=== PATIENT | male | born 1995 | race African-American/Black ===

== ENCOUNTER 2022-07-15 11:00 | Outpatient (CLI) | payer MEDICAID | END 2022-07-15 23:59 | disposition home or self-care (01) | LOC: MLB 11:00 → EDSTATUS 07-16 15:50 | PROVIDERS: ATTEND Internal Medicine Gastroenterology | DX: Z01.812 Encounter for preprocedural laboratory examination (principal); Z20.822 Contact with and (suspected) exposure to COVID-19 ==

== ENCOUNTER 2022-07-29 08:01 | Emergency (ER) | payer MEDICAID ==
[~2022-07-29] VITALS: Ht 188 cm; Wt 68.0 kg
[2022-07-29 08:04] VITALS: BP 140/80
[2022-07-29] MEDS ORDERED: ONDANSETRON 4 MG/2 ML VIAL IVP ONE (08:05)
[2022-07-29] MEDS ORDERED: NACL 0.9% 1,000 ML IV SCH (08:05)
--- NOTE | 2022-07-29 08:08 | NUR ---
BIBA TO BED 8
--- NOTE | 2022-07-29 08:15 | NUR ---
27YO MALE PT BIBA HOME C/O L ABDOMINAL PAIN XTODAY. REPORTS SUDDEN ONSET AT 2AM ALONG W/ N/V-BLOOD. ABOMEN FLAT AND TENDER. STATES TAKING IBUPROFEN W/O RELIEF. LBM xTODAY. PT W/ DX CHOLITIS AND STATES MISSING GI CONSULT LAST WEEK. DENIES CHEST PAIN, SOB , FEVER OR CHILLS. PT AAOX4, IN VISIBLE DISTRESS AND GURADING ABDOMEN. ON VELVET WEAVER. HX:CHOLITIS NKA
[2022-07-29] MEDS ORDERED: KETOROLAC 15 MG/ML VIAL IVP ONE (08:25)
[2022-07-29 08:47] LABS: BASOPHILS # (AUTO) 0.1 K/uL (0.00-0.22); BASOPHILS % (AUTO) 0.4 % (0.0-2.0); EOSINOPHILS # (AUTO) 0.1 K/uL (0-0.4); EOSINOPHILS % (AUTO) 0.4 % (0.0-4.0); HEMATOCRIT 47.7 % (36-52); HEMOGLOBIN 16.2 g/dL (12.0-18.0); LYMPHOCYTES # (AUTO) 1.9 K/uL (2.0-11.5); LYMPHOCYTES % (AUTO) 13.9 % (20.5-51.1); MEAN CORPUSCULAR HEMOGLOBIN 34 pg (27-31); MEAN CORPUSCULAR HGB CONC 34 g/dL (33-37); MEAN CORPUSCULAR VOLUME 100.9 fL (80-94); MONOCYTES # (AUTO) 0.8 K/uL (0.8-1.0); MONOCYTES % (AUTO) 5.6 % (1.7-9.3); NEUTROPHILS # (AUTO) 11.2 K/uL (1.8-7.7); NEUTROPHILS % (AUTO) 79.7 % (42.2-75.2); PLATELET COUNT (AUTO) 256 K/uL (140-450); RED BLOOD CELL COUNT(AUTO) 4.72 MIL/uL (4.20-6.10); RED CELL DISTRIBUTION WIDTH 12.7 % (11.6-13.7)
[2022-07-29 08:58] LABS: ALBUMIN 4.7 g/dL (3.4-5.0); ANION GAP 20.7 (8-16); CREATININE 1.1 mg/dL (0.6-1.3); POTASSIUM 3.7 mmol/L (3.5-5.1); TOTAL BILIRUBIN 0.8 mg/dL (0.0-1.0)
--- NOTE | 2022-07-29 09:25 | NUR ---
PT TAKEN TO CT VIA DELFIN
--- NOTE | 2022-07-29 09:36 | NUR ---
PT BROUGHT BACK VIA DELFIN
[2022-07-29] MEDS ORDERED: HALOPERIDOL IM 5 MG/ML VIAL IVP ONE (10:10)
[2022-07-29] MEDS ORDERED: diphenhydrAMINE 50 MG/ML VIAL IVP ONE (10:10)
[2022-07-29 10:23] LABS: APPEARANCE,URINE CLEAR (CLEAR); BILIRUBIN,URINE NEGATIVE (NEGATIVE); BLOOD, URINE NEGATIVE (NEGATIVE); COLOR,URINE YELLOW (YELLOW); LEUKOCYTE ESTERASE ,URINE NEGATIVE (NEGATIVE); NITRITE, URINE NEGATIVE (NEGATIVE); PH,URINE >=9.0 (5.0-9.0); UGLUCOSE NEGATIVE (NEGATIVE)
[2022-07-29 10:32] LABS: CALCIUM OXALATE CRYSTALS,UR None Seen /HPF (None Seen); COARSE GRANULAR CASTS,URINE None Seen /LPF (None Seen); FINE GRANULAR CASTS,URINE None Seen /LPF (None Seen); HYALINE CASTS, URINE None Seen /LPF (None Seen); OTHER CASTS, URINE None Seen /LPF (None Seen); OTHER CRYSTALS,URINE None Seen /HPF (None Seen); RBC,URINE 0-5 /HPF (0-5); RED BLOOD CELL CASTS,URINE None Seen /LPF (None Seen); TRICHOMONAS,URINE None Seen /HPF (None Seen); TRIPLE PHOSPHATE CRYSTAL,UR None Seen /HPF (None Seen); URIC ACID CRYSTALS,URINE None Seen /HPF (None Seen); URINE AMORPHOUS URATE None Seen /HPF (None Seen); WAXY CASTS,URINE None Seen /LPF (None Seen); WBC,URINE 0-5 /HPF (0-5); YEAST,URINE None Seen /HPF (None Seen)
[2022-07-29 10:33] LABS: BARBITURATE, URINE NEGATIVE ng/ml (NEG <=200); BENZODIAZEPINE, URINE NEGATIVE ng/mL (NEG <=200); CANNABINOID, URINE POSITIVE ng/mL (NEG <=50); COCAINE, URINE NEGATIVE ng/mL (NEG <=300); OPIATE, URINE NEGATIVE ng/mL (NEG <=2000); PHENCYCLIDINE SCREEN,URINE NEGATIVE ng/mL (NEG <=25)
[2022-07-29] MEDS ORDERED: ONDA-188 SL (11:06)
--- NOTE | 2022-07-29 11:29 | NUR ---
IV removed, catheter intact and site benign. Applied folded 4x4 gauze and tape to stop bleeding.
[2022-07-29 11:30] VITALS: BP 121/78
--- NOTE | 2022-07-29 11:30 | NUR ---
Patient discharged with v/s stable. Written and verbal after care instructions FOR ABDOMINAL PAIN, VOMITING AND CANNABOID HYPEREMESIS SYNDROME given and explained. Patient alert, oriented and verbalized understanding of instructions. Ambulatory with steady gait. All questions addressed prior to discharge. ID band removed. Patient advised to follow up with PMD. Rx of ZOFRABN given. Opportunity to ask questions provided and answered. UBER PROVIDED TO ADDRESS ON FILE
== END 2022-07-29 11:30 | disposition home or self-care (01) ==
LOC: MED 08:01
DX: R10.12 Left upper quadrant pain (principal); R10.32 Left lower quadrant pain; R11.2 Nausea with vomiting, unspecified; Z79.899 Other long term (current) drug therapy
CPT/HCPCS: 36415; 74177; 80053; 80305; 81001; 83690; 85025; 93005; 96361; 96374; 96375; 99285; J1200; J1630; J1885; J2405; J7030; Q9967

== ENCOUNTER 2023-02-07 09:37 | Emergency (ER) | payer MEDICAID ==
[~2023-02-07] VITALS: Ht 177.8 cm; Wt 68.0 kg
[~2023-02-07 09:37] MED LIST: ONDA-188 SL
[2023-02-07 09:52] VITALS: BP 122/73; PULSE 70; RESP 20; TEMP 97.4; O2SAT 97
--- NOTE | 2023-02-07 09:58 | NUR ---
27 Y/O MALE BIB SELF, C/O WHITE DISCHARGE FROM [facility], ITCHING AROUND PERINEAL AREA AND DYSURIA FOR 1 WEEK. STATES LAST ENCOUNTER WAS UNPROTECTED ABOUT 1 MO AGO. DENIES N/V/D; SKIN IS PINK/WARM/DRY; AAOX4 WITH EVEN AND STEADY GAIT; LUNGS CLEAR BL; HR EVEN AND REGULAR; PT DENIES ANY FEVER, CP, SOB, OR COUGH AT THIS TIME; PATIENT STATES PAIN OF 0/10 AT THIS TIME; VSS; ER MD MADE AWARE OF PT STATUS. PMH: DENIES NKA
[2023-02-07] MEDS ORDERED: cefTRIAXone 500 MG in LIDOCAINE MPF 1% 1 ML IM ONE (10:15)
[2023-02-07 10:22] LABS: APPEARANCE,URINE CLEAR (CLEAR); BILIRUBIN,URINE NEGATIVE (NEGATIVE); BLOOD, URINE TRACE-I (NEGATIVE); COLOR,URINE YELLOW (YELLOW); LEUKOCYTE ESTERASE ,URINE 3+ (NEGATIVE); NITRITE, URINE NEGATIVE (NEGATIVE); PH,URINE 6.5 (5.0-9.0); UGLUCOSE NEGATIVE (NEGATIVE)
[2023-02-07] MEDS ORDERED: cefTRIAXone 500 MG VIAL ONE ×2 (10:24→10:26)
[2023-02-07 10:38] LABS: RBC,URINE 0-5 /HPF (0-5); TRICHOMONAS,URINE None Seen /HPF (None Seen); YEAST,URINE None Seen /HPF (None Seen)
--- NOTE | 2023-02-07 10:38 | NUR ---
PT MEDICATED PER MD ORDERS. NADR. PT VERBALIZED NO ALLERGIES. CALL [facility]
[2023-02-07] MEDS ORDERED: CEPH-588 PO (10:43)
[2023-02-07] MEDS ORDERED: DOXY-745 PO (10:43)
[2023-02-07 10:52] VITALS: BP 125/76; PULSE 70; RESP 18; TEMP 97.8; O2SAT 96
--- NOTE | 2023-02-07 10:52 | NUR ---
Patient discharged with v/s stable. Written and verbal after care instructions given and explained. Patient alert, oriented and verbalized understanding of instructions. Ambulatory with steady gait. All questions addressed prior to discharge. ID band removed. Patient advised to follow up with PMD. Rx of KEFLEX AND DOXYCYCLINE given. Patient educated on indication of medication including possible reaction and side effects. Opportunity to ask questions provided and answered.
== END 2023-02-07 10:52 | disposition home or self-care (01) ==
LOC: MED 09:37
DX: A56.01 Chlamydial cystitis and urethritis (principal); R30.0 Dysuria; Z79.899 Other long term (current) drug therapy
CPT/HCPCS: 81001; 86592; 87086; 87491; 96372; 99283; J0696